=== PATIENT | male | born 1980 | race Caucasian/White ===

== ENCOUNTER 2019-10-05 09:23 | Day surgery (SDC) | payer OTHER ==
[~2019-10-05] VITALS: Ht 152.4 cm; Wt 58.5 kg
[2019-10-05 10:07] VITALS: BP 118/73; PULSE 64; TEMP 97.5
[2019-10-05] MEDS ORDERED: BENTYL 20MG20 MG/TAB PO (10:23)
[2019-10-05] MEDS ORDERED: ANUSOL-HC2.5% RC (10:23)
--- NOTE | 2019-10-05 11:45 | NUR ---
Patient arrives back to [facility] asleep. Patient left on cart and moved back into [facility] room. Patient monitor applied, vitals stable. Patient not responding to verbal ques. Patient given call light, lights dimmed and both side rails up. Patient resting comfortably.
--- NOTE | 2019-10-05 12:00 | NUR ---
Patient still sleeping comfortably on cart, vital stable.
[2019-10-05 12:15] VITALS: BP 95/67; PULSE 49
--- NOTE | 2019-10-05 12:15 | NUR ---
Continues to rest with eyes closed. IV fluids infusing.
[2019-10-05 12:30] VITALS: BP 95/68; PULSE 46
--- NOTE | 2019-10-05 12:30 | NUR ---
More awake and is taking water and eating muffin. IV fluids infusing. Remains resting on cart.
[2019-10-05 12:45] VITALS: BP 122/91; PULSE 79
--- NOTE | 2019-10-05 12:45 | NUR ---
Dr. Moncada here to talk with the patient and all questions answered.
--- NOTE | 2019-10-05 13:00 | NUR ---
IV discontinued and able to dress self.
--- NOTE | 2019-10-05 13:15 | NUR ---
Dismissal instructions given and patient voices understanding of these. Provided copy of instructions with Dr. Moncada's office number.
--- NOTE | 2019-10-05 13:30 | NUR ---
Patient dismissed to home and taken to the [facility] bus stop outside the emergency room per wheelchair and dismissed to home with dismissal instructions in hand.
== END 2019-10-05 13:30 | disposition home or self-care (01) ==
LOC: SDCO 09:23
DX: K21.0 Gastro-esophageal reflux disease with esophagitis (principal); K22.2 Esophageal obstruction; K59.00 Constipation, unspecified; K92.1 Melena; K64.1 Second degree hemorrhoids; K64.9 Unspecified hemorrhoids; R19.7 Diarrhea, unspecified
CPT/HCPCS: J2250; J3010; J7030